=== PATIENT | female | born 2000 | race Caucasian/White ===

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

== ENCOUNTER → 2021-01-13 | Outpatient (CLI) | payer MEDICAID ==
[~2021-01-13] MED LIST changes: +AMOX250S5 PO; +DEXAINTSOL PO; +HYDR15SO8 PO; +TETRACAINESUCKERS MT
--- NOTE | 2021-01-13 12:57 | Diagnostic Imaging Report ---
PROCEDURE: US Thyroid. TECHNIQUE: Multiple real-time grayscale images were obtained of the thyroid in various projections. INDICATION: Thyroid nodule, asymmetry of the thyroid gland. COMPARISON: None available. FINDINGS: The right lobe of the thyroid gland measures 4.6 x 1.3 x 1.4 cm. The left lobe of the thyroid gland measures 4.0 x 0.8 x 1.3 cm. Mild heterogeneity of the thyroid gland is noted diffusely without discrete thyroid nodule. IMPRESSION: Mild heterogeneity of the thyroid gland without discrete thyroid nodule. The thyroid gland is within normal limits in size. Dictated by: Dictated on workstation # [id number]
== END ==
LOC: RAD 12:00
PROVIDERS: ATTEND Nurse Practitioner Family
DX: E04.1 Nontoxic single thyroid nodule (principal); M54.6 Pain in thoracic spine
CPT/HCPCS: 76536

== ENCOUNTER 2021-02-16 12:47 | Outpatient (RCR) | payer MEDICAID | END 2021-03-11 09:53 | disposition home or self-care (01) | PROVIDERS: ATTEND Nurse Practitioner Family | DX: M54.6 Pain in thoracic spine (principal); Z87.39 Personal history of other diseases of the musculoskeletal system and connective tissue ==

== ENCOUNTER 2021-03-24 19:28 | Emergency (ER) | payer MEDICAID ==
[~2021-03-24] VITALS: Ht 165 cm; Wt 104.3 kg
[2021-03-24] MEDS ORDERED: ESCI-2 (19:44)
--- NOTE | 2021-03-24 20:16 | ED Abdominal Pain ---
General Chief Complaint: Abdominal/GI Problems Stated Complaint: ABD / VOMITING / BODY ACHES/ DIARRHEA Nursing Triage Note: diarrhea after taking miralax. left sided abdominal pain x1 year, worse x1 week, vomitted x1 03/23/21 Source of Information: Patient Exam Limitations: No Limitations History of Present Illness Date Seen by Provider: Mar 24, 2021 Time Seen by Provider: 19:55 Initial Comments Patient is a 20-year-old female who presents to the emergency department today with a chief complaint of left abdominal flank pain ongoing for about a week. She complains of intermittent constipation and diarrhea. She denies fevers, chills, shortness of breath, cough or congestion. She had one episode of vomiting yesterday and states she had a hard time holding down fluids. She has had similar pain in the past but it never lasted this long. No burning with urination, hematuria, dysuria. No abnormal vaginal discharge. She states she has taken a little bit of ibuprofen intermittently. Not much relief of symptoms. Rates her pain at a "5". No prior abdominal surgeries. Laying down makes the pain better, eating makes the pain worse. Patient is concerned about possible gallbladder issues. She does also point to the epigastrium as a source of some discomfort. Her mother states that she has a history of "GERD". All other review of systems reviewed and negative except as stated. Timing/Duration: 1 Week Severity/Quality: Cramping Location: Flank (left) Radiation: No Radiation Modifying Factors: Worsens With Eating; Improves With Lying down Associated Symptoms: Nausea/Vomiting Allergies and Home Medications Allergies Coded Allergies: No Known Drug Allergies (Unverified , 07/25/15) Patient Home Medication List Home Medication List Reviewed: Yes Escitalopram Oxalate (Escitalopram Oxalate) 10 Mg Tablet, (Reported) Entered as Reported by: LORENZA KERN on 03/24/211943 Last Action: New Order Discontinued Medications Amoxicillin (Amoxicillin) 250 Mg/5 Ml Susp, 2 TSP PO BID Discontinued Reason: No Longer Taking Prescribed by: ABHIJEET BUTTERFIELD on 07/31/20917 Last Action: Discontinued Dexamethasone (Decadron Intensol Oral Solution (Repackaging)) 1 Mg/1 Ml Maris, 2 TSP PO DAILY PRN for PAIN Discontinued Reason: No Longer Taking Prescribed by: ABHIJEET BUTTERFIELD on 07/31/20918 Last Action: Discontinued Hydrocodone/Acetaminophen (Hydrocodon-Acetamin 7.5-325/15 ML) 15 Ml Solution, 2- 3 TSP PO Q4H Discontinued Reason: No Longer Taking Prescribed by: ABHIJEET BUTTERFIELD on 07/31/20917 Last Action: Discontinued Tetracaine (Tetracaine Suckers) Sucker Ea, 1 EA MT UD PRN for PAIN Discontinued Reason: No Longer Taking Prescribed by: ABHIJEET BUTTERFIELD on 07/31/20917 Last Action: Discontinued Review of Systems Review of Systems Constitutional: see HPI EENTM: No Symptoms Reported Respiratory: No Symptoms Reported Cardiovascular: No Symptoms Reported Gastrointestinal: Abdominal Pain, Blood Streaked Stools (occasional), Constipated, Diarrhea, Nausea Genitourinary: No Symptoms Reported Musculoskeletal: no symptoms reported Skin: no symptoms reported Psychiatric/Neurological: Anxiety All Other Systems Reviewed Negative Unless Noted: Yes Past Sabhqgx-Gxkiuh-Yynsaz Hx Patient Social History Tobacco Use?: No Substance use?: No Alcohol Use?: Yes Alcohol Frequency: Once in a while Pt feels they are or have been: No Immunizations Up To Date PED Vaccines UTD: Yes Seasonal Allergies Seasonal Allergies: Yes Past Medical History Surgeries: No (oral sx) Respiratory: No Currently Using CPAP: No Currently Using BIPAP: No Cardiac: No Neurological: No Reproductive Disorders: No Genitourinary: No Gastrointestinal: No Musculoskeletal: No Endocrine: No HEENT: Yes Tonsilitis Cancer: No Psychosocial: No Integumentary: No Blood Disorders: No Family Medical History No Pertinent Family Hx Physical Exam Vital Signs Vital Signs - First Documented 03/24/21 19:34 Temp 36.3 Pulse 82 Resp 16 B/P (MAP) 138/76 (96) Pulse Ox 98 O2 Delivery Room Air Capillary Refill : Less Than 3 Seconds Height/Weight/BMI Height: 5'6" Weight: 173lbs. oz. 78.473371bh; 38.00 BMI Method: General Appearance: WD/WN, mild distress (anxious) Neck: normal inspection Respiratory: lungs clear, normal breath sounds, no respiratory distress, no accessory muscle use Cardiovascular: regular rate, rhythm Gastrointestinal: soft, tenderness (mild RUQ tenderness, also tenderness noted over the left flank; no rebound or involuntary guarding; normal bowel sounds) Extremities: normal range of motion, non-tender, normal inspection, no pedal edema Neurologic/Psychiatric: alert, normal mood/affect, oriented x 3, other ((anxious)) Skin: normal color, warm/dry Progress/Results/Core Measures Results/Orders Lab Results Laboratory Tests Test 03/24/21 20:10 03/24/21 20:15 Range/Units Urine Color YELLOW Urine Clarity CLEAR Urine pH 6.0 5-9 Urine Specific [place] 1.025 H 1.016-1.022 Urine Protein NEGATIVE NEGATIVE Urine Glucose (UA) NEGATIVE NEGATIVE Urine Ketones TRACE H NEGATIVE Urine Nitrite NEGATIVE NEGATIVE Urine Bilirubin NEGATIVE NEGATIVE Urine Urobilinogen 0.2 < = 1.0 MG/DL Urine Leukocyte Esterase NEGATIVE NEGATIVE Urine RBC (Auto) NEGATIVE NEGATIVE Urine RBC RARE /HPF Urine WBC NONE /HPF Urine Squamous Epithelial Cells 0-2 /HPF Urine Crystals PRESENT H /LPF Urine Calcium Oxalate Crystals LARGE H /LPF Urine Bacteria FEW H /HPF Urine Casts PRESENT /LPF Urine Hyaline Casts 0-2 H /LPF Urine Mucus NEGATIVE /LPF Urine Culture Indicated NO White Blood Count 8.5 4.3-11.0 10^3/uL Red Blood Count 4.15 3.80-5.11 10^6/uL Hemoglobin 13.1 11.5-16.0 g/dL Hematocrit 40 35-52 % Mean Corpuscular Volume 95 80-99 fL Mean Corpuscular Hemoglobin 32 25-34 pg Mean Corpuscular Hemoglobin Concent 33 32-36 g/dL Red Cell Distribution Width 12.0 10.0-14.5 % Platelet Count 303 130-400 10^3/uL Mean Platelet Volume 10.8 9.0-12.2 fL Immature Granulocyte % (Auto) 0 % Neutrophils (%) (Auto) 55 42-75 % Lymphocytes (%) (Auto) 37 12-44 % Monocytes (%) (Auto) 6 0-12 % Eosinophils (%) (Auto) 1 0-10 % Basophils (%) (Auto) 1 0-10 % Neutrophils # (Auto) 4.7 1.8-7.8 10^3/uL Lymphocytes # (Auto) 3.2 1.0-4.0 10^3/uL Monocytes # (Auto) 0.5 0.0-1.0 10^3/uL Eosinophils # (Auto) 0.1 0.0-0.3 10^3/uL Basophils # (Auto) 0.1 0.0-0.1 10^3/uL Immature Granulocyte # (Auto) 0.0 0.0-0.1 10^3/uL Sodium Level 138 135-145 MMOL/L Potassium Level 3.8 3.6-5.0 MMOL/L Chloride Level 105 98-107 MMOL/L Carbon Dioxide Level 21 21-32 MMOL/L Anion Gap 12 5-14 MMOL/L Blood Urea Nitrogen 6 L 7-18 MG/DL Creatinine 0.69 0.60-1.30 MG/DL Estimat Glomerular Filtration Rate 110 BUN/Creatinine Ratio 9 Glucose Level 90 70-105 MG/DL Calcium Level 9.3 8.5-10.1 MG/DL Corrected Calcium 9.0 8.5-10.1 MG/DL Total Bilirubin 0.2 0.1-1.0 MG/DL Aspartate Amino Transf (AST/SGOT) 33 5-34 U/L Alanine Aminotransferase (ALT/SGPT) 46 0-55 U/L Alkaline Phosphatase 81 40-136 U/L Total Protein 7.5 6.4-8.2 GM/DL Albumin 4.4 3.2-4.5 GM/DL Serum Test, Qualitative NEGATIVE NEGATIVE My Orders Orders - RENO ALDANA MD Ed Iv/Invasive Line Start (03/24/21 20:07) Comprehensive Metabolic Panel (03/24/21 20:07) Cbc With Automated Diff (03/24/21 20:07) Hcg,Qualitative Serum (03/24/21 20:07) Ua Culture If Indicated (03/24/21 20:07) Ketorolac Injection (Toradol Injection) (03/24/21 21:30) Abdomen/Kub 1view (03/24/21 21:22) Medications Given in ED Current Medications Medications Dose Ordered Sig/Matthew Route Start Time Stop Time Status Last Admin Dose Admin Ketorolac Tromethamine 15 mg ONCE ONCE IVP 03/24/21 21:30 03/24/21 21:31 DC 03/24/21 21:47 15 MG Vital Signs/I&O 03/24/21 03/24/21 19:34 22:16 Temp 36.3 36.3 Pulse 82 67 Resp 16 16 B/P (MAP) 138/76 (96) 120/64 Pulse Ox 98 99 O2 Delivery Room Air Room Air Blood Pressure Mean: 96 Progress Progress Note : Time: 22:08 Progress Note Patient's pain completely alleviated with IV Toradol. Labs have been reviewed as well as imaging, everything is reassuring/unremarkable. Patient will be discharged home with instructions for qgoa-pxo-qxucjjk Aleve, 2 tablets twice a day with food for pain. Return precautions given. Patient verbalized understanding. All questions are sought and answered. Patient is stable for discharge. Departure Impression Primary Impression: Left flank pain Disposition: HOME, SELF-CARE Condition: Stable Departure-Patient Inst. Decision time for Depature: 22:09 Referrals: [facility] (PCP/Family) Primary Care Physician Patient Instructions: Abdominal Pain, Adult ED Add. Discharge Instructions: Drink plenty of fluids to stay well-hydrated. Take rjvo-xbt-kpbifwk Aleve, 2 tablets twice a day with food as needed for pain. Come back to the emergency room if you have worsening pain especially with vomiting, fever, blood in your urine or any other emergent concerning symptoms. Please follow-up for further evaluation of this issue with your primary care kel woodard. RENO ALDANA MD Mar 24, 2021 20:15
[2021-03-24 20:34] LABS: BASOPHILS # (AUTO) 0.1 10^3/uL (0.0-0.1); BASOPHILS % (AUTO) 1 % (0-10); EOSINOPHILS # (AUTO) 0.1 10^3/uL (0.0-0.3); EOSINOPHILS % (AUTO) 1 % (0-10); HEMATOCRIT 40 % (35-52); HEMOGLOBIN 13.1 g/dL (11.5-16.0); LYMPHOCYTES # (AUTO) 3.2 10^3/uL (1.0-4.0); LYMPHOCYTES % (AUTO) 37 % (12-44); MEAN CORPUSCULAR HEMOGLOBIN 32 pg (25-34); MEAN CORPUSCULAR HGB CONC 33 g/dL (32-36); MEAN CORPUSCULAR VOLUME 95 fL (80-99); MEAN PLATELET VOLUME 10.8 fL (9.0-12.2); MONOCYTES # (AUTO) 0.5 10^3/uL (0.0-1.0); MONOCYTES % (AUTO) 6 % (0-12); NEUTROPHILS # (AUTO) 4.7 10^3/uL (1.8-7.8); NEUTROPHILS % (AUTO) 55 % (42-75); PLATELET COUNT 303 10^3/uL (130-400); WHITE BLOOD COUNT 8.5 10^3/uL (4.3-11.0)
[2021-03-24 20:42] LABS: BILIRUBIN,URINE NEGATIVE (NEGATIVE); CLARITY,URINE CLEAR; COLOR,URINE YELLOW; GLUCOSE, URINE (UA) NEGATIVE (NEGATIVE); KETONES,URINE TRACE (NEGATIVE); LEUKOCYTE ESTERASE ,URINE NEGATIVE (NEGATIVE); NITRITE,URINE NEGATIVE (NEGATIVE); PROTEIN,URINE NEGATIVE (NEGATIVE)
[2021-03-24 20:50] LABS: ALBUMIN 4.4 GM/DL (3.2-4.5); BILIRUBIN,TOTAL 0.2 MG/DL (0.1-1.0); CALCIUM 9.3 MG/DL (8.5-10.1); CREATININE SERUM 0.69 MG/DL (0.60-1.30); POTASSIUM 3.8 MMOL/L (3.6-5.0); TOTAL PROTEIN 7.5 GM/DL (6.4-8.2)
[2021-03-24 21:05] LABS: BACTERIA,URINE FEW /HPF; RBC,URINE RARE /HPF
[2021-03-24 21:06] LABS: CALCIUM OXALATE CRYSTALS,UR LARGE /LPF; HYALINE CASTS, URINE 0-2 /LPF; SQUAMOUS EPITHELIAL CELL,UR 0-2 /HPF
[2021-03-24] MEDS ORDERED: KETOROLAC 30 MG/ML VIAL IVP ONE (21:30)
--- NOTE | 2021-03-24 21:58 | Diagnostic Imaging Report ---
EXAMINATION: Abdomen 1 view. HISTORY: Left flank pain. COMPARISON: None available. FINDINGS: Bowel gas pattern is normal. No calcifications are seen projecting over the kidneys or ureters. No free air. IMPRESSION: Normal bowel gas pattern. Dictated by: Dictated on workstation # [id number]
[2021-03-24 22:16] VITALS: BP 120/64
== END 2021-03-24 22:17 | disposition home or self-care (01) ==
LOC: EDUNIT# 19:28 → ER 19:30
DX: R10.9 Unspecified abdominal pain (principal)
CPT/HCPCS: 36415; 74018; 80053; 81000; 84703; 85025

== ENCOUNTER → 2021-07-15 | Outpatient (CLI) | payer MEDICAID ==
[~2021-07-15] MED LIST changes: +ESCI-2
--- NOTE | 2021-07-15 14:24 | Diagnostic Imaging Report ---
INDICATION: Back pain status post injury. COMPARISON: None FINDINGS: Frontal and lateral views of the lumbar spine were obtained. Alignment and vertebral heights are maintained. There is no fracture or destructive process. Limited views of the abdomen demonstrate nonobstructive bowel gas pattern. IMPRESSION: 1. No acute fracture or dislocation of the lumbar spine. Dictated by: Dictated on workstation # [id number]
== END ==
LOC: RAD 13:52
PROVIDERS: ATTEND Family Medicine
DX: M54.50 Low back pain, unspecified (principal)
CPT/HCPCS: 72100

== ENCOUNTER → 2021-10-01 | Outpatient (CLI) | payer MEDICAID ==
--- NOTE | 2021-10-01 09:40 | Diagnostic Imaging Report ---
PROCEDURE: US Gallbladder. TECHNIQUE: Multiple real-time grayscale images were obtained over the right upper quadrant in various projections. INDICATION: Right upper quadrant pain. COMPARISON with gallbladder ultrasound 01/10/2020. Multiple small mobile calculi within the gallbladder lumen now present. The gallbladder nondistended. Its wall non-thickened. There is a negative Heart's sign. No pericholecystic fluid. There is no intra or extrahepatic bile duct dilatation, the common bile duct measuring 2 to 3 mm. Portal vein patent and showed a normal hepatopetal directional flow. The aorta and IVC unremarkable. The unobstructed right kidney measures 11 cm. It has what is likely a 1.3 cm simple upper pole parapelvic cyst. No solid or vascularized lesion. Cortical thickness and echotexture are otherwise normal. No ascites. IMPRESSION: Cholelithiasis but no secondary features of acute cholecystitis. Dictated by: Dictated on workstation # [id number]
== END ==
LOC: RAD 08:00
PROVIDERS: ATTEND Family Medicine
DX: K80.20 Calculus of gallbladder without cholecystitis without obstruction (principal)
CPT/HCPCS: 76705

== ENCOUNTER 2021-10-13 06:15 | Outpatient (CLI) | payer MEDICAID ==
[~2021-10-13] VITALS: Ht 165.1 cm; Wt 109.0 kg
[2021-10-13] MEDS ORDERED: ESOM20CA PO (17:13)
[2021-10-20] MEDS ORDERED: ACHD5005 PO (11:18)
== END 2021-10-13 17:21 | disposition home or self-care (01) ==
LOC: PREOP 06:15
PROVIDERS: ATTEND Surgery
DX: Z01.818 Encounter for other preprocedural examination (principal)

== ENCOUNTER 2021-10-20 09:01 | Day surgery (SDC) | payer MEDICAID ==
[2021-10-20] VITALS (11 sets, daily range): BP systolic 114–129; BP diastolic 62–78
[~2021-10-20] VITALS: Ht 165.1 cm; Wt 109.0 kg
[~2021-10-20 09:01] MED LIST changes: +ESOM20CA PO
[2021-10-20] MEDS ORDERED: ceFAZolin 2 GM IV Premixed 50 ML IV ONE (09:30)
[2021-10-20] MEDS ORDERED: LACTATED RINGERS 1,000 ML IV PRN (09:30)
[2021-10-20] MEDS ORDERED: FAMOTIDINE 20MG/2ML IV (PEPCID) ONE (09:35)
[2021-10-20] MEDS ORDERED: MIDAZOLAM 2 MG/2 ML (VERSED) VIAL ONE ×2 (09:35→09:55)
[2021-10-20] MEDS ORDERED: ceFAZolin 2 GM IV Premixed 50 ML ONE (09:35)
[2021-10-20] MEDS ORDERED: ONDANSETRON 4 MG/2 ML (SDV) Z0FRAN ONE ×2 (09:35→09:55)
--- NOTE | 2021-10-20 09:36 | Progress Note-Pre Operative ---
Pre-Operative Progress Note H&P Reviewed The H&P was reviewed, patient examined and no changes noted. Time Seen by Provider: 09:34 Date H&P Reviewed: Oct 20, 2021 Time H&P Reviewed: 09:34 Pre-Operative Diagnosis: Cholelithiasis/cholecystitis, Chronic Gastritis RAMÓN GIRON DO Oct 20, 2021 09:36
[2021-10-20] MEDS ORDERED: ONDANSETRON 4 MG/2 ML (SDV) Z0FRAN IV ONE (09:45)
[2021-10-20] MEDS ORDERED: FAMOTIDINE 20MG/2ML IV (PEPCID) IV ONE (09:45)
[2021-10-20] MEDS ORDERED: MIDAZOLAM 2 MG/2 ML (VERSED) VIAL IV ONE (09:45)
[2021-10-20] MEDS ORDERED: fentaNYL INJ 100 MCG/2 ML AMP ONE ×2 (09:55→11:11)
[2021-10-20] MEDS ORDERED: LIDOCAINE PF 2% 5 ML (XYLOCAINE) VIAL ONE (09:55)
[2021-10-20] MEDS ORDERED: LIDOCAINE/EPI 2% 1:200,00 (XYLOCAINE) 20 ML VIAL ONE (09:55)
[2021-10-20] MEDS ORDERED: proPOfol 200 MG/20 ML (DIPRIVAN) VIAL IV ONE (09:55)
[2021-10-20] MEDS ORDERED: SEVOFLURANE (ULTANE) 15 ML INHAL SOLN ONE ×2 (09:55→11:13)
[2021-10-20] MEDS ORDERED: GLYCOPYRROLATE 0.2 MG/ML (ROBINUL) 2 ML VIAL ONE (11:04)
[2021-10-20] MEDS ORDERED: NEOSTIGMINE 3 MG/3 ML VIAL ONE (11:04)
[2021-10-20] MEDS ORDERED: KETOROLAC 30 MG/ML VIAL ONE (11:11)
[2021-10-20] MEDS ORDERED: ROCURONIUM 50 MG/5 ML (ZEMURON) VIAL IV ONE (11:13)
--- NOTE | 2021-10-20 11:16 | Progress Note-Post Operative ---
Post-Operative Progess Note Surgeon (s)/Thread Machine Operator (s) Surgeon RAMÓN GIRON DO Thread Machine Operator: Macarena Pre-Operative Diagnosis Cholelithiasis/cholecystitis Post-Operative Diagnosis Same Procedure & Operative Findings Date of Procedure 10/20/21 Procedure Performed/Findings PROCEDURE: Laparoscopic cholecystectomy with intraoperative cholangiogram. COMPLICATIONS: None. PROCEDURE: The patient was taken to the operating suite and was prepped and draped in sterile fashion. A surgical pause was performed. Just superior to the umbilicus, a 12 mm incision was made. Dissection was taken down to the fascia, which was then scored and grasped with a Rasheed and the abdomen was then entered. A 0 Vicryl suture was placed in a fnutyl-iy-[id number] fashion and a Flowers trocar was placed and secured. Pneumoperitoneum was achieved. A 5mm trochar place in the subxyphoid and 2 in the right upper quadrant. The gallbladder was then grasped and elevated. The cystic duct, and cystic artery were then dissected out. Clip was placed on the distal portion of the cystic duct which was then partially transected. An arrow catheter was inserted into the duct. The cholangiogram was then performed. No filing defects and contrast made its way into the duodenum. Catheter removed. Clips were placed on proximal portion of the cystic duct and then the duct was then transected. Clips were placed along the proximal and distal portion of the cystic artery which was then transected. Hook cautery was used to dissect the gallbladder from the gallbladder fossa achieving hemostasis. The gallbladder was placed in an Endobag and removed through the 12 mm trocar site. The abdomen was then reinspected. Copious amounts of irrigation were used to irrigate the abdomen and there were no signs of active bleeding. Hemostasis had been achieved. The 12 mm fascial defect was then closed with 0 Vicryl suture that had been placed in a myajat-ac-ixjeo fashion. The abdomen was then desufflated, the trocars were removed. The abdomen was then washed and dried. The skin was then closed using 4-0 Monocryl in a subcuticular fashion. The abdomen was washed and dried and Skin Affix was place over incisions. Patient tolerated the procedure well without any complications and was taken to the recovery room in stable condition. Dr. Fiore assisted on this case helping to make incisions, close incisions, identify anatomy, hold anatomy out of the way. Anesthesia Type GET Estimated Blood Loss Estimated blood loss (mL): scant Specimens/Packing Specimens Removed GB and contents RAMÓN GIRON DO Oct 20, 2021 11:16
[2021-10-20] MEDS ORDERED: ACHD5005 PO (11:18)
--- NOTE | 2021-10-20 11:19 | Discharge Inst-Surgical ---
Discharge Inst-Surgical Depart Medication/Instructions New, Converted or Re-Newed RX: Transmitted to Pharmacy Patient Instructions Follow up Appt: Make appointment for 1 week. [phone] Instructions: No lifting greater than 20 pounds. No strenuous activity. May shower in 24 hours, no tub bath or soaking. Use incentive spirometer at home as directed. No Smoking Skin/Wound Care: May remove bandages in am. You need to leave the Dermabond on incision it will fall off on it's own. Symptoms to Report: Appetite Changes, Extremity Discoloration, Numbness/Tingling, Swelling Increased, Bleeding Excessive, Eyesight Changes, Pain Increased, Urine Color Change, Constipation(Persistent), Fever over 101 degree F, Pain/Pressure in chest, Urinating Difficulty, Cough Up/Vomit Blood, Heart Beat Irreg/Pounding, Pain/Pressure in jaw, Cramps in feet or legs, Lightheadedness, Pain/Pressure in shoulder, Diarrhea(Persistent), Memory Changes Suddenly, Questions/Concerns, Weight gain consecutive days, Dizziness/Fainting, Nausea/Vomiting, Shortness of Breath, Weight gain over 2 pounds If questions or concerns contact your physician Or seek help at emergency department. Activity Activity as Tolerated: Yes Activity Instructions: Avoid Stress to Incision Driving Instructions: No Driving/Refer to Diet Discharge Diet: Avoid Fatty Foods, Low Fat/Low Cholesterol Diet After 24 Hours: Clear Liquid if Nauseous If Any Problems/Questions/Issu: Contact Your Physician, Go to Emergency Room Skin/Wound Care Infection Signs and Symptoms: Increased Redness, Foul Odor of Wound, Increased Drainage, Skin Itchy or Has a Rash, Increased Swelling, Temperature Above 101 F Wound Care Comment: heating pad to shoulder or neck tonight for pain Bathing Instructions: Shower Stitches/[place]/Dermabond Dis: Dermabond Ice Pack: Ice On and Off Site RAMÓN GIRON DO Oct 20, 2021 11:19
--- NOTE | 2021-10-20 11:19 | Endoscopy Discharge Instruct ---
Endo Procedure/Findings Findings 1.: Gastritis 2.: Hiatal Hernia 3.: Other Findings (Esophagitis) Discharge Instructions - Activity: You might feel a little sleepy until tomorrow. This is due to the medicine you received to relax you. Until tomorrow, you should: NOT drive a car, operate machinery or power tools. NOT drink any alcoholic beverages. NOT make any important decisions or sign importortant papers. Do not return to work until tomorrow, unless otherwise instructed. Resume previous activities tomorrow. Diet: Start by taking liquids. If you tolerate liquids, advance to solid food. 1.: EGD in 3 years Notify Physician - If you experience excessive bleeding, unusual abdominal pain, fever, or chest pain, contact your doctor immediately. RAMÓN GIRON DO Oct 20, 2021 11:19
--- NOTE | 2021-10-20 11:22 | Progress Note-Post Operative ---
Post-Operative Progess Note Surgeon (s)/Buttonholer (s) Surgeon RAMÓN GIRON DO Buttonholer: none Pre-Operative Diagnosis Chronic Gastritis Post-Operative Diagnosis Gastritis Esophagitis Hiatal hernia Procedure & Operative Findings Date of Procedure 10/20/21 Procedure Performed/Findings EGD with biopsy PROCEDURE NOTE: After informed consent was obtained, the patient was already in the OR suite, in supine position; had just finished lap tavo. The scope was inserted down t he mouth through the esophagus into the stomach. On the way down, noted some mild esophagitis, took a picture, pushed into the stomach, pushed past the antrum into the duodenum. Duodenum looked good. Pulled back and did a biopsy of antrum, then retroflexed the scope, saw a 1-2cm hiatal hernia, took a picture of this and then pulled the scope into the GE junction, took another picture of the hiatal hernia and then did a biopsy of the GE junction. Pushed the scope back into the stomach, suctioned all the air out of the stomach. At this point pulled the scope up the esophagus and out the mouth. Anesthesia Type GET Estimated Blood Loss Estimated blood loss (mL): scant Specimens/Packing Specimens Removed antral bx body of stomach bx GE jxn bx RAMÓN GIRON DO Oct 20, 2021 11:22
[2021-10-20] MEDS ORDERED: HYDROmorphone 2 MG/ML VIAL (DILAUDID) IV ONE (11:30)
[2021-10-20] MEDS ORDERED: HYDROmorphone 2 MG/ML VIAL (DILAUDID) ONE (11:30)
[2021-10-20] MEDS ORDERED: ONDANSETRON 4 MG/2 ML (SDV) Z0FRAN IVP PRN (11:30)
[2021-10-20] MEDS ORDERED: HYDROcodone/APAP 5 MG/325 MG (LORTAB) TAB ONE (12:51)
[2021-10-20] MEDS ORDERED: HYDROcodone/APAP 5 MG/325 MG (LORTAB) TAB PO ONE (14:15)
--- NOTE | 2021-10-20 14:54 | Anesthesia-General Post-Op ---
General Patient Condition Mental Status/LOC: Same as Preop Cardiovascular: Satisfactory Nausea/Vomiting: Absent Respiratory: Satisfactory Pain: Controlled Complications: Absent Post Op Complications Complications None Follow Up Care/Instructions Patient Instructions None needed. Anesthesia/Patient Condition Patient Condition Patient is doing well, no complaints, stable vital signs, no apparent adverse anesthesia problems. No complications reported per nursing. D/C home per [facility] Criteria: Yes DELISA BOLTON CRNA Oct 20, 2021 14:54
--- NOTE | 2021-10-20 15:15 | Diagnostic Imaging Report ---
INDICATION: Fluoroscopy for intraoperative cholangiogram. EXAMINATION: Fluoroscopy was provided in the OR during intraoperative cholangiogram. FINDINGS: 8 seconds of fluoroscopic time was utilized. 41 images were obtained. Images demonstrate contrast being injected via the cystic duct remnant. Intrahepatic and extrahepatic bile ducts are normal caliber. No filling defects are seen. Contrast flows into the duodenum. IMPRESSION: Fluoroscopy for intraoperative cholangiogram. Dictated by: Dictated on workstation # [id number]
== END 2021-10-20 14:20 ==
LOC: SDC 09:01
PROVIDERS: ATTEND Surgery
DX: K29.50 Unspecified chronic gastritis without bleeding (principal); K21.00 Gastro-esophageal reflux disease with esophagitis, without bleeding; K44.9 Diaphragmatic hernia without obstruction or gangrene; K80.10 Calculus of gallbladder with chronic cholecystitis without obstruction; E66.01 Morbid (severe) obesity due to excess calories; Z68.41 Body mass index [BMI] 40.0-44.9, adult; Z79.899 Other long term (current) drug therapy
CPT/HCPCS: 76000; 84703; 87081